=== PATIENT | male | born 1970 | race Caucasian/White ===

== ENCOUNTER → 2017-04-27 | Outpatient (CLI) | payer OTHER, MEDICAID ==
--- NOTE | 2017-04-27 17:21 | MRI ---
HISTORY: Short-term memory loss and confusion. Study: MRI brain without contrast. Comparison: None. Technique: Multiplanar multi-sequence MRI of the brain was obtained utilizing standard departmental p rotocol. Sagittal and axial T1 weighted images were obtained. Axial T2 and flair weighted images we re performed as well. Axial diffusion weighted and ADC trace mapping was performed. Findings: The midline structures appear unremarkable. The evaluation of the brain parenchyma demonstrates no a bnormal signal characteristics to suggest intraparenchymal mass or hemorrhage. No extra-axial fluid collections are observed. The ventricular system appears symmetric and nondilated. The CP angle is normal in its appearance without brainstem mass or evidence for acoustic neuroma. The flow voids on both T1 and T2 weighted imaging appear unremarkable. Evaluation of the diffusion weighted imaging d oes not demonstrate abnormal signal characteristics to suggest acute ischemic change. Mild mucosal t hickening of the visualized paranasal sinuses. The mastoid air cells are clear. The osseous structure s are otherwise intact. IMPRESSION: 1. Unremarkable MRI of the brain without contrast. 2. Sinus disease as above. Reported By:
== END ==
LOC: RT 10:23
PROVIDERS: ATTEND Psychiatry & Neurology Neurology
DX: R41.3 Other amnesia (principal)
CPT/HCPCS: 70551; 95819